=== PATIENT | male | born 1935 | race Caucasian/White ===

== ENCOUNTER 2017-03-18 20:00 | Inpatient (IN) | payer MEDICARE, BC ==
[~2017-03-18] VITALS: Ht 170.2 cm; Wt 90.5 kg
--- NOTE | 2017-03-20 13:57 | HP ---
ADMIT: 03/18/2017 RM/LOC: [facility] MR#: [id number] 26[address] [facility] [address] [place] [id number] KATEY MORELOS [address] [address] History and Physical SEX: M AGE: 81 : 1935 DATE OF SERVICE: CHIEF COMPLAINT: Shortness of breath. HISTORY OF PRESENT ILLNESS: This is an 81-year-old gentleman who presented to outside facility in [place] with the shortness of breath. When he got there, he was having respiratory distress. Oxygen saturations in the 80s. Respirations in the 30s. He was put on 4 L of oxygen, which corrected his oxygen, made him feel quite a bit better. He is also given 3 nebulizer treatments as well as some Pulmicort nebulizer treatment and then transferred here. Blood pressure okay, heart rate okay, was not febrile. X-ray there looked like pneumonia. At the time I see him here in [place], he is feeling much better. He is on 6 L of oxygen at this point. Oxygen saturations are adequate. He has had a little bit cough recently and more shortness of breath. Does state that he has been off his Lasix for the last week because it makes him pee too much. There was one medicine that Dr. Yeboah had stopped, but he had restarted because his blood pressure was getting too high. He is actually uncertain which medicine that was unfortunately. His family is with him today and they state he likes to be his own doctor and change his medicines at times. The patient denies having any chest pain, but say he did feel tightness in his chest with deep breathing. He had a lot of wheezing and rhonchi in [place], which did improve with the nebulizer treatments. PAST MEDICAL HISTORY: Include BPH, coronary artery disease, chronic kidney disease, stage 3. He is DNR, he has a hiatal hernia, history of prostate cancer, hyperlipidemia, hypertension, hypogonadism, bilateral knee arthritis. MEDICATIONS: 1. Alfuzosin, which is Uroxatral 10 mg at bedtime. 2. Aspirin 325 mg daily. 3. Atenolol 25 mg daily. 4. Atorvastatin 20 mg daily. 5. Furosemide 40 mg daily. 6. Multiple vitamin. 7. He had a Prevnar in 2014. 8. He had a Pneumovax in 1998. 9. Zostavax in 2013. PAST SURGICAL HISTORY: Include coronary artery bypass surgery x3 graft, he had a cholecystectomy, he has had a shoulder surgery. He has had bilateral knee plasma rich injections about two weeks ago. FAMILY HISTORY: Significant for brother with coronary disease. The patient has been a smoker, quit 30 years ago. He also has chronic diastolic congestive heart failure. REVIEW OF SYSTEMS: Other complete review of systems obtained and negative except as above. ADMIT: 03/18/2017 RM/LOC: 308 [facility] MR#: [id number] [address] [place] [id number] KATEY MORELOS [address] [place] [address] History and Physical SEX: M AGE: 81 : 1935 PHYSICAL EXAMINATION: VITAL SIGNS: Temperature 100.9, pulse 70, respirations 24-30, blood pressure 124/53, oxygen saturation 90% on 6 L of oxygen by nasal cannula. GENERAL: This is an overweight-appearing 81-year-old white gentleman. No apparent distress. He is very pleasant. HEENT: Pupils equal, round, and reactive to light and accommodation. Extraocular muscles are intact. Throat is clear. NECK: Supple. HEART: Regular rate and rhythm, but diminished breath sounds. LUNGS: Clear to auscultation bilaterally. Now occasional rhonchi. EXTREMITIES: He can move all extremities equally bilaterally. Does have 2+ left lower extremity pitting edema, 1+ right lower extremity pitting edema. ABDOMEN: Distended, tympanic, nontender. SKIN: Unremarkable. NEURO: Cranial nerves are intact. LABORATORY AND X-RAY DATA: As above. ASSESSMENT: 1. Pneumonia with severe sepsis with associated hypoxic respiratory failure, likely underlying chronic obstructive pulmonary disease with exacerbation. 2. Coronary artery disease. 3. Chronic kidney disease. Last creatinine in office 1.87. 4. Questionable history of atrial fibrillation. 5. Lower extremity edema. PLAN: He was admitted to the hospital, given some IV antibiotics, IV steroids, routine DuoNebs. I am going to get a chest CT without contrast as well as lower extremity Dopplers to rule out PE. He did have a mildly elevated D-dimer. I am holding some of his medicine to avoid some low blood pressures. Give him a little IV fluid, but I am avoiding fluid boluses now because he does have acute on chronic diastolic congestive heart failure with hypoxia and they do not want to push him further to needing intubated. We will trend out his cardiac enzymes as well. Check lactic acid and procalcitonin as well. We will start him anticoagulation just to make sure this is atrial fibrillation or for his possible PE. Asad Quiles MD/ sara JOB #: [id number] CC: Linden Yeboah, Attending Physician Linden Yeboah, Family Physician
[2017-03-22] MEDS ORDERED: ALFUZOSIN HCL E10 MG PO (10:31)
[2017-03-22] MEDS ORDERED: TENORMIN-DPS25 MG PO (10:31)
[2017-03-22] MEDS ORDERED: LIPITOR20 MG PO (10:31)
[2017-03-22] MEDS ORDERED: LASIX DPS40 MG PO (10:31)
[2017-03-22] MEDS ORDERED: VITAMIN D31000 UNI1 PO (10:32)
[2017-03-22] MEDS ORDERED: ASPIR-LOW81 MG PO (10:32)
[2017-03-22] MEDS ORDERED: VIBRAMYCIN-DPS100 M2 PO (10:33)
[2017-03-22] MEDS ORDERED: DELTASONE DPS20 MG PO (10:33)
[2017-03-22] MEDS ORDERED: ELIQUIS2.5 MG PO (10:33)
[2017-03-22] MEDS ORDERED: MEGARED OMEGA-1 EAC1 PO (10:34)
--- NOTE | 2017-03-23 22:05 | DS ---
ADMIT: 03/18/2017 RM/LOC: 308 [facility] MR#: [id number] [address] [id number] KATEY MORELOS [address] [address] Discharge Summary SEX: M AGE: 81 : 1935 ADMISSION DATE: 03/18/2017 DISCHARGE DATE: 03/21/2017 CONSULTATIONS: None. PROCEDURES: None. FINAL DIAGNOSES: 1. Acute diastolic heart failure. 2. Hypoxic respiratory failure. 3. COPD (chronic obstructive pulmonary disease) with acute exacerbation. 4. Atrial fibrillation. 5. Coronary artery disease. 6. Acute delirium. REASON FOR ADMISSION: The patient is an 81-year-old gentleman with slowly increasing edema, shortness of breath, cough and wheeze at outpatient hospital, was found to be hypoxic and was transferred for further care. HOSPITAL COURSE: The patient was admitted to the ICU. Stabilized. Given IV diuresis. [place] much improved at time of discharge. Placed on initially IV antibiotics. Seemed like his overall totality of course was more of acute COPD and CHF rather than pneumonia. The patient was placed on some oral antibiotics and steroids at time of discharge. Was found to be in new onset atrial fibrillation. Placed on anticoagulation. Overall, felt safe and stable for discharge to home. DISCHARGE INSTRUCTIONS: Please see discharge MAR, which I reviewed. He will be on doxycycline for eight days, Tenormin, Lipitor, Lasix, Eliquis, which is new, prednisone taper, aspirin. Please see discharge MAR for full list and details as well as dosages. He will follow up with myself in clinic at the end of the week on Tuesday. He will have a low-sodium diet in the meantime. Had a long discussion regarding his heart failure and the importance of low- sodium diet of which he has definitely not been on lately. Had a long discussion regarding the importance of adherence to diuretic which he had not been doing at home. He will weigh himself daily now. We will see him back in close followup. Linden Yeboah MD/ ashley JOB #: [id number] CC: Linden Yeboah MD, Attending Physician Linden Yeboah MD, Family Physician
== END 2017-03-21 11:22 | disposition home or self-care (01) | DRG 291 ==
LOC: 4PCU 20:00 → 3ICU 20:00 → 4PCU 20:19 → 3ICU 23:59 → 4PCU 03-19 01:08 → 3ICU 03-19 01:50
PROVIDERS: ADMIT Internal Medicine
DX: I13.0 Hypertensive heart and chronic kidney disease with heart failure and stage 1 through stage 4 chronic kidney disease, or unspecified chronic kidney disease (principal); I50.33 Acute on chronic diastolic (congestive) heart failure; J96.91 Respiratory failure, unspecified with hypoxia; J44.1 Chronic obstructive pulmonary disease with (acute) exacerbation; F05 Delirium due to known physiological condition; I48.91 Unspecified atrial fibrillation; N18.3 Chronic kidney disease, stage 3 (moderate); Z95.1 Presence of aortocoronary bypass graft; K44.9 Diaphragmatic hernia without obstruction or gangrene; M17.0 Bilateral primary osteoarthritis of knee; E78.5 Hyperlipidemia, unspecified; E29.1 Testicular hypofunction; I25.10 Atherosclerotic heart disease of native coronary artery without angina pectoris; N40.0 Benign prostatic hyperplasia without lower urinary tract symptoms; Z66 Do not resuscitate; Z85.46 Personal history of malignant neoplasm of prostate; Z79.82 Long term (current) use of aspirin; Z82.49 Family history of ischemic heart disease and other diseases of the circulatory system; Z87.891 Personal history of nicotine dependence

== ENCOUNTER 2017-08-03 07:36 | Day surgery (SDC) | payer MEDICARE, BC ==
[~2017-08-03] VITALS: Ht 170.2 cm; Wt 86.0 kg
--- NOTE | ~2017-08-03 | OR ---
ADMIT: 08/03/2017 RM/LOC: [facility] MR#: [id number] [facility]#: [id number] [address] [id number] KATEY MORELOS [address] [address] Operative/Delivery Room Report SEX: M AGE: 81 : 1935 SURGERY DATE: 08/03/2017 SURGEON: Stuart Morales MD PREOPERATIVE DIAGNOSIS: Incarcerated large left inguinal hernia. POSTOPERATIVE DIAGNOSIS: Incarcerated large left inguinal hernia. PROCEDURE: Open Chepe left inguinal hernia repair with Prolene mesh. CUTTER BRAKE LINING: CIARA Chmaberlain, whose assistance was necessary for exposure in the operative field and tissue retraction. ANESTHESIA: General. ESTIMATED BLOOD LOSS: 10 mL. DESCRIPTION OF PROCEDURE: The patient was taken to the operating room and placed supine on the operating room table. General anesthesia was established. The left groin was prepped and draped in the standard surgical fashion. An oblique incision was made overlying the inguinal canal. Dissection proceeded through the subcutaneous tissue to the external oblique aponeurosis. This was incised in the direction of its fibers down to the external ring. The underlying huge hernia sac and cord structures were encircled at the pubic tubercle with a Nancy drain. The hernia sac was then dissected free from the cord structures carefully back to the internal ring. This was indirect in location. This was opened and there was a huge piece of omentum incarcerated. Because of the size of this and inability to completely reduce that, I did ligate this with silk suture and excised a large portion of omentum. The sac was closed with Vicryl suture. Next, a 3 inch x 6 inch Prolene mesh was cut at appropriate size for overlap in the inguinal canal floor. This was secured to the tissue over the pubic tubercle, medially along the iliopubic tract laterally along the shelving portion of the inguinal ligament with 0 silk suture. The mesh was split down the middle and its tails ADMIT: 08/03/2017 RM/LOC: [facility] MR#: [id number] [address] [id number] KATEY MORELOS [address] [place] [address] Operative/Delivery Room Report SEX: M AGE: 81 : 1935 reapproximated laterally and secured to the internal oblique musculature with 0 silk suture for recreation of the internal ring. This provided good overlap of the defect with no tension. The cord structures were returned to their anatomic position. The external oblique aponeurosis was approximated with 0 Vicryl suture. Jean Paul's fascia was approximated with 2-0 Vicryl suture. Skin edges were approximated with 4-0 Monocryl in a subcuticular fashion and Dermabond. Local anesthetic was injected. Sponge, needle, and instrument counts were correct at the end of the case. The patient tolerated the procedure well and transferred to the recovery area in stable condition. Stuart Morales MD/ sara JOB #: [id number] CC: Stuart Morales, Attending Physician Linden Yeboah, Family Physician Kandy Johnson MD
[~2017-08-03 07:36] MED LIST: ALFUZOSIN HCL E10 MG PO; ASPIR-LOW81 MG PO; DELTASONE DPS20 MG PO; ELIQUIS2.5 MG PO; LASIX DPS40 MG PO; LIPITOR20 MG PO; MEGARED OMEGA-1 EAC1 PO; TENORMIN-DPS25 MG PO; VIBRAMYCIN-DPS100 M2 PO; VITAMIN D31000 UNI1 PO
== END 2017-08-03 16:07 | disposition home or self-care (01) ==
LOC: SSS 07:36
PROC: 0YU60JZ Supplement Left Inguinal Region with Synthetic Substitute, Open Approach (ICD-10-PCS; principal; 2017-08-03)
DX: K40.30 Unilateral inguinal hernia, with obstruction, without gangrene, not specified as recurrent (principal); I48.91 Unspecified atrial fibrillation; I25.10 Atherosclerotic heart disease of native coronary artery without angina pectoris; I10 Essential (primary) hypertension; J44.9 Chronic obstructive pulmonary disease, unspecified; E78.5 Hyperlipidemia, unspecified; Z98.49 Cataract extraction status, unspecified eye; Z98.890 Other specified postprocedural states; Z95.1 Presence of aortocoronary bypass graft; Z79.82 Long term (current) use of aspirin; Z85.46 Personal history of malignant neoplasm of prostate